=== PATIENT | male | born 1985 | race Two or more races ===

== ENCOUNTER 2018-09-01 09:19 | Emergency (ER) | payer OTHER ==
[~2018-09-01] VITALS: Ht 170.2 cm; Wt 90.0 kg
[2018-09-01 09:23] VITALS: BP 141/81
--- NOTE | 2018-09-01 09:55 | NUR ---
Discharge instructions discussed with patient, verbalizes understanding, questions answered. Prescription provided to patient with instruction for use. Patient ambulates with steady gait to discharge desk in no acute distress.
== END 2018-09-01 09:57 | disposition home or self-care (01) ==
LOC: ED 09:45
DX: K62.5 Hemorrhage of anus and rectum (principal); K64.8 Other hemorrhoids
CPT/HCPCS: 99283